=== PATIENT | male | born 1970 | race African-American/Black ===

== ENCOUNTER 2016-12-19 17:37 | Emergency (ER) | payer OTHER ==
[~2016-12-19] VITALS: Ht 180.3 cm; Wt 80.0 kg
[~2016-12-19 17:37] MED LIST: HYDR-3533 PO
[2016-12-19 17:43] VITALS: BP 124/80; PULSE 89; RESP 16; TEMP 98.5; O2SAT 98
[2016-12-19] MEDS ORDERED: POLYPOW5 (18:02)
[2016-12-19] MEDS ORDERED: QUET-88 PO (18:02)
[2016-12-19] MEDS ORDERED: TROS20TA PO (18:02)
[2016-12-19] MEDS ORDERED: VIAG100T PO (18:02)
[2016-12-19] MEDS ORDERED: TAMS0.4C4 PO (18:02)
[2016-12-19] MEDS ORDERED: POLY17S PO (18:02)
[2016-12-19] MEDS ORDERED: MIRTA15 PO (18:02)
[2016-12-19] MEDS ORDERED: PRAZ2CAP PO (18:02)
[2016-12-19] MEDS ORDERED: GABA300C5 PO (18:02)
[2016-12-19] MEDS ORDERED: BACL10TA PO (18:02)
[2016-12-19] MEDS ORDERED: PARO30TA2 PO (18:02)
[2016-12-19] MEDS ORDERED: BUSP10TA PO (18:02)
[2016-12-19] MEDS ORDERED: HYDR-3533 PO (18:58)
[2016-12-19] MEDS ORDERED: CLIN1CAP5 PO (18:58)
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
== END 2016-12-19 19:10 | disposition home or self-care (01) ==
LOC: PHEFT 17:37
DX: K08.89 Other specified disorders of teeth and supporting structures (principal); R22.0 Localized swelling, mass and lump, head; F17.200 Nicotine dependence, unspecified, uncomplicated; Z86.59 Personal history of other mental and behavioral disorders; Z87.39 Personal history of other diseases of the musculoskeletal system and connective tissue
CPT/HCPCS: 99282

== ENCOUNTER 2017-03-23 20:50 | Emergency (ER) | payer OTHER ==
[~2017-03-23] VITALS: Ht 180.3 cm; Wt 82.4 kg
[~2017-03-23 20:50] MED LIST changes: +BACL10TA PO; +BUSP10TA PO; +CLIN1CAP5 PO; +GABA300C5 PO; +MIRTA15 PO; +PARO30TA2 PO; +POLY17S PO; +POLYPOW5; +PRAZ2CAP PO; +QUET-88 PO; +TAMS0.4C4 PO; +TROS20TA PO; +VIAG100T PO
[2017-03-23 21:01] VITALS: BP 123/80; PULSE 82; RESP 16; TEMP 98.5; O2SAT 100
[2017-03-23 22:15] VITALS: RESP 18; O2SAT 100
[2017-03-23] MEDS ORDERED: ROBA500T PO (22:40)
[2017-03-23] MEDS ORDERED: PRED50 PO (22:40)
[2017-03-23] MEDS ORDERED: PERC10TA27 PO (22:40)
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
[2017-03-23 22:45] VITALS: BP 134/76; PULSE 80; RESP 18; O2SAT 99
[2017-03-23] MEDS ORDERED: oxyCODONE/ACETAMINOPHEN 10 MG/325 MG TAB PO ONE (22:45)
[2017-03-23] MEDS ORDERED: KETOROLAC TROMETHAMINE 60 MG/2 ML (IM) VIAL IM ONE (22:45)
== END 2017-03-23 22:58 | disposition home or self-care (01) ==
LOC: PHED 20:50
DX: M54.42 Lumbago with sciatica, left side (principal); F17.200 Nicotine dependence, unspecified, uncomplicated; Z98.890 Other specified postprocedural states; Z86.59 Personal history of other mental and behavioral disorders; Z87.39 Personal history of other diseases of the musculoskeletal system and connective tissue
CPT/HCPCS: 96372; 99284; J1885

== ENCOUNTER 2018-07-19 22:57 | Inpatient (IN) ==
[2018-07-20 00:07] LABS: Baso # (Auto) 0.1 th/mm3 (0.0-0.2); Baso % (Auto) 0.7 % (0.0-2.0); Eos % (Auto) 0.4 % (0.0-4.0); Hematocrit 40.9 % (39.0-51.0); Lymph # (Auto) 2.2 th/mm3 (1.0-4.8); Lymph % (Auto) 18.7 % (9.0-44.0); Mean Corpuscular HGB Conc 34.3 % (32.0-36.0); Mean Corpuscular Hemoglobin 29.8 pg (27.0-34.0); Mean Platelet Volume 8.4 fL (7.0-11.0); Mono # (Auto) 0.7 th/mm3 (0.0-0.9); Mono % (Auto) 6.3 % (0.0-8.0); Neut # (Auto) 8.5 th/mm3 (1.8-7.7); Neut % (Auto) 73.9 % (16.0-70.0); Platelet Count 243 th/mm3 (150-450); White Blood Count 11.5 th/mm3 (4.0-11.0)
[2018-07-20] MEDS ORDERED: Ketorolac Inj 30 MG/ML (IVP) Vial IV.PUSH ONE (00:26)
[2018-07-20 00:27] LABS: Alanine Aminotransferase 26 U/L (12-78); Anion Gap 11 meq/L (5-15); Aspartate Aminotransferase 25 U/L (15-37); Blood Urea Nitrogen 11 mg/dL (7-18); Calcium 8.7 mg/dL (8.5-10.1); Carbon Dioxide 23.4 meq/L (21.0-32.0); Chloride 109 meq/L (98-107); Glomerular Filtration Rate 70 mL/min (>89); Glucose,Random 94 mg/dL (74-106); Potassium 3.4 meq/L (3.5-5.1); Sodium 143 meq/L (136-145)
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
[2018-07-20 00:30] LABS: Alkaline Phosphatase 49 U/L (45-117); Total Protein 7.5 g/dL (6.4-8.2); Troponin I 0.04 ng/mL (0.02-0.05)
--- NOTE | 2018-07-20 00:58 | XR ---
EXAM DATE: 07/20/2018 12:11 AM EST AGE/SEX: 47 years / Male INDICATIONS: Chest pain, shortness of breath. CLINICAL DATA: This is the patient's initial encounter. Patient reports that signs and symptoms have been present for 1 day and indicates a pain score of 8/10. MEDICAL/SURGICAL HISTORY: . Smoker. Paranoid schizophrenia. None. COMPARISON: No prior exams available for comparison. FINDINGS: Single AP view the chest. The lungs are clear. Cardiomediastinal silhouette within normal limits. No evidence of pleural effusion or pneumothorax. CONCLUSION: No acute cardiopulmonary disease identified. Electronically signed by: Valdemar Foley MD 07/20/2018 12:57 AM EST
[2018-07-20] MEDS ORDERED: Morphine Inj 4 MG/ML Vial IV.PUSH ONE (03:18)
[2018-07-20] MEDS ORDERED: Acetaminophen 325 MG Tablet PO PRN (03:34)
--- NOTE | 2018-07-20 04:04 | CT ---
EXAM DATE: 07/20/2018 3:54 AM EST AGE/SEX: 47 years / Male INDICATIONS: Chest pain. CLINICAL DATA: This is the patient's initial encounter. Patient reports that signs and symptoms have been present for 1 day and indicates a pain score of 10/10. MEDICAL/SURGICAL HISTORY: None. None. RADIATION DOSE: 10.40 CTDI (mGy) COMPARISON: No prior exams available for comparison. TECHNIQUE: Multiple contiguous axial images were obtained through the chest without contrast. Image s were obtained in suspended respiration using multiple row detector helical technique. Using automa karey exposure control and adjustment of the mA and/or kV according to patient size, radiation dose was kept as low as reasonably achievable to obtain optimal diagnostic quality images. DICOM format imag e data is available electronically for review and comparison. FINDINGS: Lungs: The lungs are clear. Mediastinum: No enlarged lymph nodes. Thoracic aorta diameter within normal limits. Pleurae: No evidence of pleural effusion. Axillae: Unremarkable. Bony Structures: Unremarkable. Miscellaneous: Upper abdomen within normal limits. CONCLUSION: No acute findings in the chest. Electronically signed by: Valdemar Foley MD 07/20/2018 4:03 AM EST
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
[2018-07-20] MEDS ORDERED: Sod Chloride 0.9% Inj 1,000 ML IV.CONT SCH (05:00)
[2018-07-20] MEDS ORDERED: Sodium Chloride 0.9% 2 ML Flush PRN IV.FLUSH (06:01)
[2018-07-20 07:25] LABS: Amphetamine Screen,Urine Neg (Neg); Barbiturate Screen,Urine Neg (Neg); Cannabinoid Screen,Urine Pos (Neg); Cocaine Screen,Urine Pos (Neg)
[2018-07-20 07:37] LABS: Opiate Screen,Urine Neg (Neg)
[2018-07-20] MEDS: Morphine Inj 4 MG/ML Vial IV.PUSH PRN ×2 (08:30→12:53)
[2018-07-20] MEDS ORDERED: Sodium Chloride 0.9% 2 ML Flush BID IV.FLUSH SCH (09:00)
--- NOTE | 2018-07-20 11:38 | ECHRPT ---
Indication: Effusion CONCLUSIONS Normal left ventricular size. Wall thickness is normal. The left ventricular systolic function is normal with an estimated ejection fraction in the range of 55-60%. No regional wall motion abnormalities are present. No valvular abnormalities. BP: / HR: Rhythm: MEASUREMENTS (Male / Female) Normal Values Technical Quality:Good 2D ECHO LV Diastolic Diameter PLAX 4.7 cm 4.2 - 5.9 / 3.9 - 5.3 cm LV Systolic Diameter PLAX 3.3 cm IVS Diastolic Thickness 1.0 cm 0.6 - 1.0 / 0.6 - 0.9 cm LVPW Diastolic Thickness 1.0 cm 0.6 - 1.0 / 0.6 - 0.9 cm LV Relative Wall Thickness 0.4 RV Internal Dim ED PLAX 2.9 cm LVOT Diameter 2.0 cm Aortic Root Diameter 3.2 cm LA Systolic Diameter LX 3.7 cm 3.0 - 4.0 / 2.7 - 3.8 cm DOPPLER AV Peak Velocity 136.0 cm/s AV Peak Gradient 7.4 mmHg LVOT Peak Velocity 129.0 cm/s LVOT Peak Gradient 6.7 mmHg AV Area Cont Eq pk 3.0 cm Mitral E Point Velocity 86.9 cm/s Mitral A Point Velocity 69.6 cm/s Mitral E to A Ratio 1.2 LV E' Lateral Velocity 14.6 cm/s Mitral E to LV E' Lateral Ratio 6.0 LV E' Septal Velocity 9.3 cm/s Mitral E to LV E' Septal Ratio 9.4 TR Peak Velocity 126.0 cm/s TR Peak Gradient 6.4 mmHg Right Atrial Pressure 10.0 mmHg Pulmonary Artery Systolic Pressu 16.4 mmHg Right Ventricular Systolic Press 16.4 mmHg PV Peak Velocity 105.0 cm/s PV Peak Gradient 4.4 mmHg FINDINGS LEFT VENTRICLE Normal left ventricular size. Wall thickness is normal. The left ventricular systolic function is normal with an estimated ejection fraction in the range of 55-60%. No regional wall motion abnormalities are present. RIGHT VENTRICLE Normal right ventricular size and systolic function. LEFT ATRIUM The left atrial size is normal. RIGHT ATRIUM The right atrial size is normal. ATRIAL SEPTUM Normal atrial septal thickness without atrial level shunting by limited color doppler interrogation. AORTA The aortic root and proximal ascending aorta are normal in size on limited imaging. MITRAL VALVE Structurally normal mitral valve. No mitral valve stenosis or regurgitation. AORTIC VALVE Trileaflet aortic valve. No aortic valve stenosis or regurgitation. TRICUSPID VALVE There is trace tricuspid valve regurgitation. The estimated pulmonary arterial pressure is 16 mmHg. PULMONARY VALVE No pulmonary valve regurgitation or stenosis. VESSELS The inferior vena cava is normal in size. PERICARDIUM No pericardial effusion. Joe Deluca MD (Electronically Signed) Final Date:20 July 2018 11:38
[2018-07-20 12:43] LABS: Troponin I 0.04 ng/mL (0.02-0.05)
[2018-07-20 13:19] LABS: CKMB Percent 0.7 % (0.0-4.0); Creatine Kinase MB 6.7 ng/mL (0.5-3.6)
--- NOTE | 2018-07-20 13:21 | ECG ---
Date Performed: 07/20/2018 Time Performed: 03:26:28 PTAGE: 47 years EKG: SINUS BRADYCARDIA BORDERLINE ECG Since the PREVIOUS TRACING , no significant change noted PREVIOUS TRACIN07/19/2018 23.04 DOCTOR: Teresa Garg Interpretating Date/Time 07/20/2018 13:19:04
--- NOTE | 2018-07-20 13:21 | ECG ---
Date Performed: 07/19/2018 Time Performed: 23:04:24 PTAGE: 47 years EKG: Sinus rhythm NORMAL ECG Since the PREVIOUS TRACING , no significant change noted PREVIOUS TRACIN03/28/2016 20.12 DOCTOR: Teresa Garg Interpretating Date/Time 07/20/2018 13:18:56
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
== END 2018-07-20 16:49 | disposition short-term general hospital (02) ==
LOC: NEPE 22:57 → NEDA 07-20 03:21 → NEPHCDU 07-20 08:35
PROVIDERS: ADMIT Hospitalist; ATTEND Hospitalist